=== PATIENT | male | born 2000 | race Caucasian/White ===

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

== ENCOUNTER 2019-11-02 16:59 | Emergency (ER) | payer BC, OTHER ==
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
== END 2019-11-02 17:45 | disposition home or self-care (01) ==
LOC: JD.ED 16:59
CPT/HCPCS: 99282

== ENCOUNTER 2020-04-16 19:26 | Emergency (ER) | payer SELFPAY ==
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
== END 2020-04-16 20:15 | disposition home or self-care (01) ==
LOC: JD.ED 19:26
DX: S01.112A Laceration without foreign body of left eyelid and periocular area, initial encounter (principal); F98.8 Other specified behavioral and emotional disorders with onset usually occurring in childhood and adolescence; Z79.899 Other long term (current) drug therapy; W21.03XA Struck by baseball, initial encounter; Y93.64 Activity, baseball
CPT/HCPCS: 12011; 99282; 99282-25

== ENCOUNTER 2021-06-09 22:43 | Emergency (ER) | payer SELFPAY ==
[2021-06-09] MEDS ORDERED: Lidocaine 1% with EPINEPHrine 1:100,000 20 ML MDV INJECT ONE (23:34)
[2021-06-09] MEDS ORDERED: Bupivacaine 0.5% 10 ML SDV INJECT ONE (23:34)
--- NOTE | 2021-06-09 23:40 | EDM.PDOC ---
ED HPI GENERAL MEDICAL PROBLEM - General Chief Complaint: ENT Problem Stated Complaint: TOOTHACHE/HEADACHE Time Seen by Provider: 06/09/21 22:49 Source of Information: Reports: Patient History Limitations: Reports: No Limitations - History of Present Illness INITIAL COMMENTS - FREE TEXT/NARRATIVE: Mr. Palacio is a very pleasant 20-year-old man who now presents to the ED stating that he developed lower left dental pain on or about 06/07/2021. No known trauma - the tooth just started to hurt. He states that the pain has gotten so bad, he has not been able to sleep for the past 2 nights. He states that he took 3000 mg of ibuprofen this morning, which did not help his pain. No recent fever. No recent oral drainage. The patient states that he has had dental pain in the past, but not this severe. The patient states that he has an appointment to see a dentist tomorrow morning, , 06/10/2021. Here in the ED, the patient's initial BP is found to be elevated at 173/106. He is afebrile, saturating 98% on room air. He appears to be comfortable, in no acute distress. Other than the dental pain, the patient denies having a recent fever, chills, sore throat, ear pain, nasal or sinus congestion, cough, dyspnea, chest pain, palpitations, nausea, vomiting, constipation, diarrhea, abdominal pain, urinary symptoms, recent weight gain or weight loss, recent bloody bowel movements or black bowel movements, recent joint aches, headaches, or rashes. The patient's PCP is JEANNE Renee. He has not received a COVID vaccination, nor an influenza vaccination this season. Left Lower Tooth/Teeth Pain Score (Numeric/FACES): 10 - Related Data Allergies Allergy/AdvReac Type Severity Reaction Status Date / Time No Known Allergies Allergy Verified 04/16/20 19:35 Home Meds: Home Meds Dextroamphetamine/Amphetamine [Adderall 30 mg Tablet] 40 mg PO DAILY 11/02/19 [History] Escitalopram Oxalate [Lexapro] 1 tab 06/09/21 [History] traZODone 1 tab 06/09/21 [History] Past Medical History Psychiatric History: Reports: ADHD, Depression, Other (See Below) (Insomnia) - Past Surgical History HEENT Surgical History: Reports: Other (See Below) (Facial reconstruction) Musculoskeletal Surgical History: Reports: Shoulder Surgery (right, arthroscopic) Social & Family History - Tobacco Use Tobacco Use Status *Q: Never Tobacco User Second Hand Smoke Exposure: No - Caffeine Use Caffeine Use: Reports: None - Alcohol Use Alcohol Use History: No - Recreational Drug Use Recreational Drug Use: Yes Drug Use in Last 12 Months: Yes Recreational Drug Type: Reports: Cocaine (last snorted Mar 2021), Marijuana/Hashish (last smoked Mar 2021) - Living Situation & Occupation Living situation: Reports: Single, with Family (2 brothers) Occupation: Employed ([employer]) ED ROS ENT - Review of Systems Review Of Systems: Comprehensive ROS is negative, except as noted in HPI. ED EXAM, ENT - Physical Exam Exam: See Below Exam Limited By: No Limitations General Appearance: Alert, WD/WN, No Apparent Distress Eye Exam: Bilateral Eye: EOMI Ears: Normal External Exam, Normal Canal, Hearing Grossly Normal, Normal TMs Nose: Normal Inspection, Normal Mucousa, No Blood Mouth/Throat: Normal Gums (no gingival swelling or pointing), Normal Lips, Normal Oropharynx, Other (Numerous teeth with amalgam fillings, but no significant decay seen. Tooth #19 with a metallic crown. Tooth #18 (the tooth of concern) with an amalgam filling and either a chip or erosion off of the anteromedial corner.) Head: Atraumatic, Normocephalic Neck: Normal Inspection, Supple, Non-Tender, Full Range of Motion. No: Lymphadenopathy (L), Lymphadenopathy (R) Course - Vital Signs Last Recorded V/S: Last Vital Signs Temp 35.8 C L 06/09/21 22:57 Pulse 64 06/09/21 22:57 Resp 20 06/09/21 22:57 BP 173/106 H 06/09/21 22:57 Pulse Ox 98 06/09/21 22:57 - Orders/Labs/Meds Meds: Medications Discontinued Medications Generic Name Dose Route Start Last Admin Trade Name Freq PRN Reason Stop Dose Admin Bupivacaine HCl 10 ml 06/09/21 23:34 Bupivacaine 0.5% 10 Ml Sdv INJECT 06/09/21 23:35 ONETIME ONE Lidocaine/Epinephrine 20 ml 06/09/21 23:34 Lidocaine 1% With Epinephrine 1:100,000 20 Ml Mdv INJECT 06/09/21 23:35 ONETIME ONE - Re-Assessments/Exams Free Text/Narrative Re-Assessment/Exam: 06/09/21 23:35 The patient appears to have a chip or decay of the anteromedial aspect of tooth #18, which is likely the source of his pain. I do not see any sign of an infection. Since a large dose of ibuprofen this morning did not help with his pain, I suggested a dental block, which should give him significant relief until he can see a dentist in the morning. The patient agreed. 06/09/21 23:55 Using an admixture of 60% lidocaine 1% with epinephrine and 40% bupivacaine 0.5% without epinephrine, I performed a left inferior alveolar nerve block, injecting 1.5 mL of anesthetic. The patient tolerated the procedure well. Within 1 minute, he reported significant relief. I will discharge the patient home. Because there is no obvious sign of an infection, and because he will be seeing a dentist within a matter of hours, I am not going to start him on an antibiotic at this time. Departure - Departure Time of Disposition: 23:57 Disposition: Home, Self-Care 01 Condition: Good Clinical Impression: Dentalgia - Discharge Information *PRESCRIPTION DRUG MONITORING PROGRAM REVIEWED*: Not Applicable *COPY OF PRESCRIPTION DRUG MONITORING REPORT IN PATIENT HERMINIO: Not Applicable Referrals: Zahira Soriano PA-C [Primary Care Provider] - Forms: ED Department Discharge Additional Instructions: You were seen in the emergency room for 2 days of lower left dental pain. An inferior alveolar nerve block was performed in the ER, giving you near instantaneous relief. Because no obvious infection was seen, and because you will be seeing a dentist within a matter of hours, antibiotics were not prescribed. If any other problems, please do not hesitate to return to the ER. Sepsis Event Note (ED) - Evaluation Sepsis Screening Result: No Definite Risk - Focused Exam Vital Signs: Vital Signs Temp Pulse Resp BP Pulse Ox 06/09/21 22:57 35.8 C L 64 20 173/106 H 98
== END 2021-06-10 00:04 | disposition home or self-care (01) ==
LOC: JD.ED 22:43
DX: K08.89 Other specified disorders of teeth and supporting structures (principal)
CPT/HCPCS: 64400; 99282; J3490; 99283

== ENCOUNTER 2021-06-10 18:10 | Emergency (ER) | payer SELFPAY ==
[2021-06-10] MEDS ORDERED: Bupivacaine 0.5%/EPINEPHrine 1:200,000 30 ML SDV INJECT ONE (19:04)
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
== END 2021-06-10 20:12 | disposition home or self-care (01) ==
LOC: JD.ED 18:10
DX: K08.89 Other specified disorders of teeth and supporting structures (principal)
CPT/HCPCS: 64400; 99282; J3490; 99283

== ENCOUNTER 2021-06-25 12:42 | Emergency (ER) | payer SELFPAY ==
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
== END 2021-06-25 14:00 | disposition home or self-care (01) ==
LOC: JD.ED 12:42
DX: K04.7 Periapical abscess without sinus (principal)
CPT/HCPCS: 99282

== ENCOUNTER 2021-07-22 19:56 | Emergency (ER) | payer SELFPAY ==
[2021-07-22] MEDS ORDERED: Lidocaine 1% with EPINEPHrine 1:100,000 20 ML MDV INJECT ONE (21:54)
[2021-07-22] MEDS ORDERED: Bupivacaine 0.5% 10 ML SDV INJECT ONE (21:54)
--- NOTE | 2021-07-22 21:55 | EDM.PDOC ---
ED HPI GENERAL MEDICAL PROBLEM - General Chief Complaint: ENT Problem Stated Complaint: DENTAL PROBLEM Time Seen by Provider: 07/22/21 20:52 Source of Information: Reports: Patient History Limitations: Reports: No Limitations - History of Present Illness INITIAL COMMENTS - FREE TEXT/NARRATIVE: Mr. Palacio is a very pleasant 20-year-old man who now presents the ED stating that he woke up with a lower left tooth ache this morning. No recent fever or oral drainage. He took some ibuprofen, and penicillin left over from 06/25/2021. Medical records indicate that the patient was seen by me in this ED on 06/09/2021 for the same toothache of tooth #18. I performed an inferior alveolar nerve block, and the patient reported that he would be following up with a dentist the following day, 06/10/2021. The patient then returned to this ED on 06/10/2021 stating that he had gotten tremendous relief from the dental block, but that his dental appointment has been moved to 06/14/2021. A second dental block was performed. He then returned to this ED on 06/25/2021 complaining of right third molar dental pain. He received another dental block, along with a prescription for penicillin and [place]. At this time, the patient states that he never did follow-up with a dentist, although he now has an appointment to see one on 08/02/2021. At triage, the patient's initial BP was found to be elevated at 175/94, with bradycardia 51 bpm. He is afebrile, saturating 97% on room air. Prior to this morning, the patient denies having a recent fever, chills, sore throat, ear pain, nasal or sinus congestion, cough, dyspnea, chest pain, palpitations, nausea, vomiting, constipation, diarrhea, abdominal pain, urinary symptoms, recent weight gain or weight loss, recent bloody bowel movements or black bowel movements, recent joint aches, headaches, or rashes. The patient's PCP is JEANNE Renee. He has not received a COVID vaccination, nor an influenza vaccination this seas on. Left Jaw Pain Score (Numeric/FACES): 10 - Related Data Allergies Allergy/AdvReac Type Severity Reaction Status Date / Time No Known Allergies Allergy Verified 07/22/21 20:47 Home Meds: Home Meds Dextroamphetamine/Amphetamine [Adderall 30 mg Tablet] 40 mg PO DAILY 11/02/19 [History] Escitalopram Oxalate [Lexapro] 1 tab PO DAILY 06/09/21 [History] traZODone 1 tab PO DAILY 06/09/21 [History] Past Medical History Psychiatric History: Reports: ADHD, Depression, Other (See Below) (Insomnia) - Past Surgical History HEENT Surgical History: Reports: Other (See Below) (Facial reconstruction) Musculoskeletal Surgical History: Reports: Shoulder Surgery (right, arthroscopic) Social & Family History - Tobacco Use Tobacco Use Status *Q: Never Tobacco User Second Hand Smoke Exposure: No - Caffeine Use Caffeine Use: Reports: Coffee - Alcohol Use Alcohol Use History: No - Recreational Drug Use Recreational Drug Use: Yes Drug Use in Last 12 Months: Yes Recreational Drug Type: Reports: Cocaine (last snorted Mar 2021), Marijuana/Hashish (last smoked Mar 2021) - Living Situation & Occupation Living situation: Reports: Single, with Family (2 brothers) Occupation: Employed ([employer]) ED ROS ENT - Review of Systems Review Of Systems: Comprehensive ROS is negative, except as noted in HPI. ED EXAM, ENT - Physical Exam Exam: See Below Exam Limited By: No Limitations General Appearance: Alert, WD/WN, No Apparent Distress Eye Exam: Bilateral Eye: EOMI, Normal Inspection Ears: Normal External Exam, Normal Canal, Hearing Grossly Normal, Normal TMs Nose: Normal Inspection, Normal Mucousa, No Blood Mouth/Throat: Normal Gums, Normal Lips, Normal Oropharynx, Other (Numerous teeth with amalgam fillings, but no significant decay seen. Tooth #19 with a metallic crown. Tooth #18 (the tooth of concern) with an amalgam filling and either a chip or erosion off the anteromedial corner.) Head: Atraumatic, Normocephalic Neck: Normal Inspection, Supple, Non-Tender, Full Range of Motion. No: Lymphadenopathy (L), Lymphadenopathy (R) Course - Vital Signs Last Recorded V/S: Last Vital Signs Temp 36.2 C 07/22/21 20:45 Pulse 51 L 07/22/21 20:45 Resp 20 07/22/21 20:45 BP 175/94 H 07/22/21 20:45 Pulse Ox 97 07/22/21 20:45 - Orders/Labs/Meds Meds: Medications Discontinued Medications Generic Name Dose Route Start Last Admin Trade Name Jacinda PRN Reason Stop Dose Admin Bupivacaine HCl 10 ml 07/22/21 21:54 Bupivacaine 0.5% 10 Ml Sdv INJECT 07/22/21 21:55 ONETIME ONE Lidocaine/Epinephrine 20 ml 07/22/21 21:54 Lidocaine 1% With Epinephrine 1:100,000 20 Ml Mdv INJECT 07/22/21 21:55 ONETIME ONE - Re-Assessments/Exams Free Text/Narrative Re-Assessment/Exam: 07/22/21 21:54 As above, tooth #18 has an anteromedial chip, but the surrounding gingiva appears to be normal, with no swelling or pointing. I will perform an inferior alveolar nerve block. 07/22/21 22:08 A left inferior alveolar nerve block was performed using a 50:50 mixture of lidocaine 1% with epinephrine and bupivacaine 0.5% without epinephrine. The patient tolerated this procedure well. Since he has been on penicillin since 06/25/2021, and still has a couple of days remaining, I do not see a need for additional penicillin. He is to follow-up with his dentist at a previously scheduled appointment on 08/02/2021. Departure - Departure Time of Disposition: 22:09 Disposition: Home, Self-Care 01 Condition: Good Clinical Impression: Dentalgia - Discharge Information *PRESCRIPTION DRUG MONITORING PROGRAM REVIEWED*: Not Applicable *COPY OF PRESCRIPTION DRUG MONITORING REPORT IN PATIENT HERMINIO: Not Applicable Referrals: Zahira Soriano PA-C [Primary Care Provider] - Forms: ED Department Discharge Additional Instructions: You were seen in the emergency room for lower left dental pain. A dental block was performed in the ER. You may continue to take your previously prescribed penicillin. Please follow-up with your dentist at your previously scheduled appointment on 08/02/2021. If any other problems, please do not hesitate to return to the ER. Sepsis Event Note (ED) - Focused Exam Vital Signs: Vital Signs Temp Pulse Resp BP Pulse Ox 07/22/21 20:45 36.2 C 51 L 20 175/94 H 97
== END 2021-07-22 22:16 | disposition home or self-care (01) ==
LOC: JD.ED 19:56
DX: K08.89 Other specified disorders of teeth and supporting structures (principal)
CPT/HCPCS: 64400; 99282-25

== ENCOUNTER 2023-10-30 17:15 | Emergency (ER) | payer BC ==
[2023-10-30] MEDS: Lidocaine 1% 10 ML MDV INJECT ONE (18:40)
[2023-10-30] MEDS: Diphtheria,Pertussis(Acell),Tetanus Vaccine 0.5 ML Syringe IM ONE (18:46)
== END 2023-10-30 19:17 | disposition home or self-care (01) ==
LOC: JD.ED 17:15
DX: S61.011A Laceration without foreign body of right thumb without damage to nail, initial encounter (principal); S01.81XA Laceration without foreign body of other part of head, initial encounter; Z23 Encounter for immunization; W17.89XA Other fall from one level to another, initial encounter
CPT/HCPCS: 12002; 90471; 90715; 99282-25; J3490

== ENCOUNTER 2023-11-07 15:08 | Emergency (ER) | payer BC | END 2023-11-07 15:36 | disposition home or self-care (01) | LOC: JD.ED 15:08 | DX: S61.011D Laceration without foreign body of right thumb without damage to nail, subsequent encounter (principal); X58.XXXD Exposure to other specified factors, subsequent encounter | CPT/HCPCS: 99281 ==